=== PATIENT | male | born 1970 | race Caucasian/White ===

== ENCOUNTER → 2016-06-10 | Outpatient (CLI) | payer BC ==
--- NOTE | 2016-06-10 11:18 | DIAGNOSTIC IMAGING REPORT ---
TWO VIEW CHEST CLINICAL HISTORY: Generalized hyperhidrosis. FINDINGS: PA and lateral chest radiographs are compared to study dated 01/23/2012. The cardiomediastinal silhouette is unremarkable. The lungs and pleural spaces are clear. There is no pneumothorax. The bony thorax appears intact. IMPRESSION: No active disease in the chest. Electronically signed by: Giovanny Arguello M.D. 06/10/2016 11:16 AM Dictated Date/Time: 06/10/2016 11:15 AM
== END | disposition home or self-care (01) ==
LOC: C.RAD1850 08:43
PROVIDERS: ATTEND Family Medicine
DX: R61 Generalized hyperhidrosis (principal)